=== PATIENT | male | born 1970 | race Caucasian/White ===

== ENCOUNTER 2017-07-19 19:36 | Emergency (ER) | payer OTHER | END 2017-07-20 00:41 | disposition left against medical advice (07) | LOC: M ED 19:36 | DX: Z53.21 Procedure and treatment not carried out due to patient leaving prior to being seen by health care provider (principal) ==

== ENCOUNTER → 2017-07-20 | Outpatient (CLI) | payer OTHER | LOC: M RAD 14:28 | DX: R50.9 Fever, unspecified (principal); R06.02 Shortness of breath | CPT/HCPCS: 71046 ==

== ENCOUNTER 2018-03-27 17:07 | Emergency (ER) | payer OTHER ==
[2018-03-27 18:27] LABS: BASO # 0.1 10^3/uL (0.0-0.2); BASO % 1.1 % (0.0-1.0); EOS # 0.3 10^3/uL (0.0-0.50); EOS % 3.4 % (0.0-3.0); HEMATOCRIT 48.8 % (42.0-52.0); HEMOGLOBIN 16.6 g/dl (13.5-17.5); IMMATURE GRANULOCYTE % 0.4 % (0-3.0); LYMPH # 3.3 10^3/uL (1.5-4.5); LYMPH % 41.9 % (24.0-44.0); MEAN CORPUSCULAR HEMOGLOBIN 30.3 pg (27.0-33.0); MEAN CORPUSCULAR VOLUME 89.1 fl (80.0-96.0); MONO # 0.7 10^3/uL (0.0-0.8); MONO % 8.2 % (0.0-5.0); NEUTROPHILS # 3.6 10^3/uL (1.8-7.7); PLATELET COUNT, AUTOMATED 213 10^3/uL (150-450); RED BLOOD COUNT 5.48 10^6/uL (4.30-6.10); RED CELL DISTRIBUTION WIDTH 12.1 % (11.5-14.5); WHITE BLOOD COUNT 7.9 10^3/uL (4.0-10.0)
[2018-03-27 18:49] LABS: ANION GAP 7 MEQ/L (8-16); BLOOD UREA NITROGEN 13 MG/DL (7-18); CALCIUM LEVEL 8.8 MG/DL (8.5-10.1); CARBON DIOXIDE LEVEL 27 MEQ/L (21-32); CHLORIDE LEVEL 107 MEQ/L (98-107); CREATININE FOR GFR 1.11 MG/DL (0.70-1.30); GLOMERULAR FILTRATION RATE > 60.0 (>60); GLUCOSE, FASTING 83 MG/DL (70-100); POTASSIUM SERUM 4.1 MEQ/L (3.5-5.1); SODIUM LEVEL 141 MEQ/L (136-145)
[2018-03-27] MEDS ORDERED: ISOVUE-370 76% 100ML VIAL (Q9967) As Ordered (18:52)
== END 2018-03-27 20:35 | disposition home or self-care (01) ==
LOC: M ED 17:07
DX: R68.84 Jaw pain (principal); R59.9 Enlarged lymph nodes, unspecified; F17.210 Nicotine dependence, cigarettes, uncomplicated
CPT/HCPCS: Q9967

== ENCOUNTER 2019-03-03 15:34 | Inpatient (IN) | payer OTHER ==
[~2019-03-03] VITALS: Ht 167.6 cm; Wt 84.0 kg
[~2019-03-03 15:34] MED LIST: IBUP-1022 PO
[2019-03-03] MEDS ORDERED: methylPREDNISolone INJ 125 MG/2 ML VIAL (J2930) IV ONE (16:30)
[2019-03-03 16:40] LABS: BASO # 0.1 10^3/uL (0.0-0.2); BASO % 0.6 % (0.0-1.0); EOS # 0.2 10^3/uL (0.0-0.50); EOS % 1.6 % (0.0-3.0); HEMATOCRIT 50.6 % (42.0-52.0); HEMOGLOBIN 17.2 g/dl (13.5-17.5); LYMPH # 1.8 10^3/uL (1.5-4.5); LYMPH % 14.7 % (24.0-44.0); MEAN CORPUSCULAR HEMOGLOBIN 30.7 pg (27.0-33.0); MEAN CORPUSCULAR VOLUME 90.4 fl (80.0-96.0); MONO # 0.8 10^3/uL (0.0-0.8); MONO % 6.5 % (0.0-5.0); NEUTROPHILS # 9.5 10^3/uL (1.8-7.7); NEUTROPHILS % 76.1 % (36.0-66.0); PLATELET COUNT, AUTOMATED 205 10^3/uL (150-450); WHITE BLOOD COUNT 12.4 10^3/uL (4.0-10.0)
[2019-03-03] MEDS: IPRATROPIUM 0.5MG/ALBUTEROL 2.5MG INH SOL UD 3ML (DUONEB)(J7620) NEB PRN ×3 (16:46→17:20)
[2019-03-03 17:01] LABS: ABG BASE EXCESS -1.9 (-2.0-2.0); ABG HCO3 20.8 MEQ/L (22.0-26.0); ABG PARTIAL PRESSURE CO2 30.8 mmHg (35.0-45.0); ABG PARTIAL PRESSURE O2 54.6 mmHg (75.0-100.0); ABG STANDARD HCO3 22.7 MEQ/L (22.0-26.0); ABG TOTAL CO2 21.7 MEQ/L (22.0-29.0); ABG pH (ARTERIAL) 7.447 UNITS (7.350-7.450)
[2019-03-03 17:13] LABS: ALBUMIN 4.5 GM/DL (3.2-5.2); ALT/SGPT 33 U/L (12-78); BILIRUBIN,DIRECT < 0.1 MG/DL (0.0-0.2); BILIRUBIN,TOTAL 0.4 MG/DL (0.2-1.0); BLOOD UREA NITROGEN 11 MG/DL (7-18); CALCIUM LEVEL 9.4 MG/DL (8.5-10.1); CARBON DIOXIDE LEVEL 29 MEQ/L (21-32); CHLORIDE LEVEL 105 MEQ/L (98-107); CK-MB VALUE MASS 1.6 NG/ML (<3.6); CPK CREATINE PHOSPHOKINASE 126 U/L (39-308); CREATININE FOR GFR 1.12 MG/DL (0.70-1.30); GLOMERULAR FILTRATION RATE > 60.0 (>60); GLUCOSE, FASTING 86 MG/DL (70-100); MB/CK RELATIVE INDEX 1.27 (< OR =4); NT-PRO BNP 40 PG/ML (<125); POTASSIUM SERUM 4.2 MEQ/L (3.5-5.1); SODIUM LEVEL 140 MEQ/L (136-145); TOTAL PROTEIN 7.5 GM/DL (6.4-8.2); TROPONIN I < 0.02 NG/ML (< 0.10)
[2019-03-03] MEDS ORDERED: ISOVUE-370 76% 100ML VIAL (Q9967) As Ordered ONE (18:07)
--- NOTE | 2019-03-03 18:39 | REP ---
PA and lateral chest: Comparison is 07/20/2017. The lung nesbitt are clear. The cardiac size is normal. The deshawn, mediastinum, and skeletal structures are unremarkable. Impression: Negative PA and lateral chest. There is no interval change. Electronically Signed by Eleazar Alfaro MD 03/03/2019 06:30 P
--- NOTE | 2019-03-03 18:39 | REPVR ---
EXAM: CT Angiography Chest With Contrast EXAM DATE/TIME: 03/03/2019 6:02 PM CLINICAL HISTORY: 49 years old, male; Shortness of breath; Additional info: SOB, hypoxia TECHNIQUE: Imaging protocol: Computed tomographic angiography of the chest with intravenous contrast. 3D rendering: MIP reconstructed images were created and reviewed. Radiation optimization: All CT scans at this facility use at least one of these dose optimization techniques: automated exposure control; mA and/or kV adjustment per patient size (includes targeted exams where dose is matched to clinical indication); or iterative reconstruction. Contrast material: ISOVUE 370; Contrast volume: 75 ml; Contrast route: IV; COMPARISON: CR Chest, 2 view PA, Lat 03/03/2019 4:56 PM FINDINGS: Pulmonary arteries: Normal. No pulmonary emboli. Aorta: Unremarkable. No aortic aneurysm. No aortic dissection. Lungs: Unremarkable. No consolidation. No masses. Pleural space: Unremarkable. No pneumothorax. No pleural effusion. Heart: Unremarkable. No cardiomegaly. No pericardial effusion. Lymph nodes: Unremarkable. No enlarged lymph nodes. Bones/joints: Unremarkable. No acute fracture. Soft tissues: Unremarkable. IMPRESSION: No acute findings. Electronically signed by: Basilia Hammer On 03/03/2019 18:39:01 PM
[2019-03-03] MEDS ORDERED: ALBUTEROL SULFATE 2.5 MG/0.5 ML INH NEB SOLN NEB ONE (18:45)
[2019-03-03] MEDS ORDERED: NS 500 ML IV ONE (20:45)
[2019-03-03 20:53] LABS: PROTHROMBIN TIME 12.9 SECONDS (11.8-14.0)
--- NOTE | 2019-03-03 21:30 | ECGEPIP ---
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
[2019-03-03] MEDS: AZITHROMYCIN INJ 500 MG, VIAL MATE ADAPTER 1 EACH in D5W 250 ML IV SCH (21:35)
--- NOTE | 2019-03-03 21:43 | HPEPDOC ---
General Date of Admission Mar 03, 2019 at 20:22 Date of Service: Mar 03, 2019 Chief Complaint The patient is a 49-year-old male admitted with a reason for visit of Acute Bronchitis;Hypoxia. Source: Patient, RN/MD Exam Limitations: No limitations Severity: Moderate History of Present Illness 49 year old smoker came to the ED for Cough, SOB and wheezing for 2 days. He does not see any doctor and is not on any medications. e also complained of subjective fever. Says he has chronic cough but it has become worse for the past 2 days with increased phlegm production associated with wheezing. He also has been having trouble laying down felt in bed since yesterday and increased wheezing at night. In ED he was found to be hypoxic in room air to 87%. is CXR and CT angio o the Chest was negative. He was admitted for Acute bronchitis, , post infectious bronchospasm and hypoxia Home Medications No Active Prescriptions or Reported Meds Allergies Coded Allergies: No Known Allergies (Unverified , 07/19/17) Past Medical History Medical History none Surgical History Exploratory laparotomy as an hernia surgery appendectomy Family History Significant Family History: Cancer (father brain cancer), COPD (mother, brother) Social History * Smoker: current smoker, greater than 1 pack/day Alcohol: Denies Drugs: denies A-FIB/CHADSVASC A-FIB History Current/History of A-Fib/PAF?: No Review of Systems Constitutional: Denies: Fever Eyes: Denies: Pain, Vision change ENT: Denies: Head Aches, Ear Pain, Dysphagia Skin: Denies: Rash, Lesions, Breakdown Pulmonary: Denies: Dyspnea, Cough Cardiovascular: Denies: Chest Pain, Palpitations, Orthopnea, Paroxysmal Noc. Dyspnea, Lt Headedness Gastrointestinal: Denies: Nausea, Vomiting, Abdominal Pain, Diarrhea Genitourinary: Denies: Dysuria, Frequency, Incontinence, Retention Hematologic: Denies: Bruising, Bleeding Excessively Musculoskeletal: Denies: Neck Pain, Back Pain, Joint Pain, Muscle Pain, Spasms Physical Examination General Exam: Positive: Alert, Cooperative, No Acute Distress Eye Exam: Positive: PERRLA, Conjunctiva & lids normal, EOMI; Negative: Sclera icteric ENT Exam: Positive: Atraumatic, Mucous membr. moist/pink, Pharynx Normal Neck Exam: Positive: Supple; Negative: JVD, thyromegaly Chest Exam: Positive: Rhonchi, Wheezing Heart Exam: Positive: Tachycardic, Regular Rhythm, Normal S1, Normal S2; Negative: Gallops, Murmurs, Rubs Telemetry: Positive: Sinus, Tachycardia Abdomen Exam: Positive: Normal bowel sounds, Soft; Negative: Tenderness, Hepatospenomegaly Extremity Exam: Positive: Normal pulses; Negative: Clubbing, Cyanosis, Edema Skin Exam: Positive: Nl turgor and temperature; Negative: Breakdown, Lesion Vital Signs Vital Signs Date Time Temp Pulse Resp B/P (MAP) Pulse Ox O2 Delivery O2 Flow Rate FiO2 03/03/19 20:31 116 92 Nasal Cannula 2.0 03/03/19 19:14 98.6 03/03/19 18:46 130/70 (90) 03/03/19 15:34 22 Laboratory Data Labs 24H Laboratory Tests 2 03/03/19 16:07: Immature Granulocyte % (Auto) 0.5, White Blood Count 12.4H, Red Blood Count 5.60, Hemoglobin 17.2, Hematocrit 50.6, Mean Corpuscular Volume 90.4, Mean Corpuscular Hemoglobin 30.7, Mean Corpuscular Hemoglobin Concent 34.0, Red Cell Distribution Width 12.4, Platelet Count 205, Neutrophils (%) (Auto) 76.1H, Lymphocytes (%) (Auto) 14.7L, Monocytes (%) (Auto) 6.5H, Eosinophils (%) (Auto) 1.6, Basophils (%) (Auto) 0.6, Neutrophils # (Auto) 9.5H, Lymphocytes # (Auto) 1.8, Monocytes # (Auto) 0.8, Eosinophils # (Auto) 0.2, Basophils # (Auto) 0.1, Nucleated Red Blood Cells % (auto) 0.0, Anion Gap 6L, Glomerular Filtration Rate > 60.0, Calcium Level 9.4, Aspartate Amino Transf (AST/SGOT) 14, Alanine Aminotransferase (ALT/SGPT) 33, Alkaline Phosphatase 125H, Total Bilirubin 0.4, Direct Bilirubin < 0.1, Total Creatine Kinase 126, Creatine Kinase MB 1.6, Creatine Kinase MB Relative Index 1.27, Troponin I < 0.02, OP-Ohr-U-Type Natriuretic Peptide 40, Total Protein 7.5, Albumin 4.5, Albumin/Globulin Ratio 1.50, Thyroid Stimulating Hormone (TSH) 1.650 03/03/19 16:46: Blood Gas Bicarbonate Standard 22.7, Arterial Blood pH 7.447, Arterial Blood Partial Pressure CO2 30.8L, Arterial Blood Partial Pressure O2 54.6L, Arterial Blood Total CO2 21.7L, Arterial Blood HCO3 20.8L, Arterial Blood Base Excess - 1.9, Arterial Blood Oxygen Saturation 91.0L 03/03/19 20:16: Prothrombin Time 12.9, Prothromb Time International Ratio 1.00 CBC/BMP Laboratory Tests 03/03/19 16:07 Red Blood Count 5.60, Mean Corpuscular Volume 90.4, Mean Corpuscular Hemoglobin 30.7, Mean Corpuscular Hemoglobin Concent 34.0, Red Cell Distribution Width 12.4, Neutrophils (%) (Auto) 76.1 H, Lymphocytes (%) (Auto) 14.7 L, Monocytes (%) (Auto) 6.5 H, Eosinophils (%) (Auto) 1.6, Basophils (%) (Auto) 0.6, Neutrophils # (Auto) 9.5 H, Lymphocytes # (Auto) 1.8, Monocytes # (Auto) 0.8, Eosinophils # (Auto) 0.2, Basophils # (Auto) 0.1 Microbiology Microbiology 03/03/19 Respiratory Virus Panel (PCR) ([facility]YA), Received Pending Assessment/Plan 49 year old smoker came to the ED for Cough, SOB and wheezing for 2 days. He does not see any doctor and is not on any medications. e also complained of subjective fever. Says he has chronic cough but it has become worse for the past 2 days with increased phlegm production associated with wheezing. He also has been having trouble laying down felt in bed since yesterday and increased wheezing at night. In ED he was found to be hypoxic in room air to 87%. is CXR and CT angio o the Chest was negative. He was admitted for Acute bronchitis, , post infectious bronchospasm and hypoxia Acute bronchitis with post infectious bronchospasm will send resp panel, sputum culture azithromycin, duonebs, budesonide, steroids. Hypoxia due to post infectious bronchospasm continue above treatment oxygen supplementation as needed. Smoker discussed about quitting says he is trying to quit probably has chronic bronchitis Sinus tachycardia possibly due to albuterol treatments and reactive to SOB may be mildly dehydrated will check echo. will give NS 500 iv bolus. Plan / VTE VTE Prophylaxis Ordered?: Yes AKOSUA SCHWARZ MD Mar 03, 2019 21:43
[2019-03-03 22:38] VITALS: BP 137/69
[2019-03-03] MEDS: methylPREDNISolone INJ 40 MG/1 ML VIAL (J2920) IV SCH (23:05)
[2019-03-03] MEDS: ENOXAPARIN 40 MG/0.4 ML SYRINGE (J1650) SC SCH (23:05)
[2019-03-04] MEDS: BUDESONIDE 0.5 MG/2 ML INHALATION SUSPENSION INH SCH ×3 (00:02→20:15)
[2019-03-04] MEDS: IPRATROPIUM 0.5MG/ALBUTEROL 2.5MG INH SOL UD 3ML (DUONEB)(J7620) NEB SCH ×6 (00:02→22:41)
[2019-03-04 06:00] VITALS: BP 119/59
[2019-03-04 06:12] LABS: BASO % 0.1 % (0.0-1.0); HEMATOCRIT 47.2 % (42.0-52.0); HEMOGLOBIN 16.3 g/dl (13.5-17.5); LYMPH # 1.1 10^3/uL (1.5-4.5); LYMPH % 7.7 % (24.0-44.0); MEAN CORPUSCULAR HEMOGLOBIN 30.9 pg (27.0-33.0); MEAN CORPUSCULAR HGB CONC 34.5 g/dl (32.0-36.5); MEAN CORPUSCULAR VOLUME 89.6 fl (80.0-96.0); MONO # 0.3 10^3/uL (0.0-0.8); NEUTROPHILS # 12.3 10^3/uL (1.8-7.7); NEUTROPHILS % 89.5 % (36.0-66.0); PLATELET COUNT, AUTOMATED 200 10^3/uL (150-450); RED BLOOD COUNT 5.27 10^6/uL (4.30-6.10); WHITE BLOOD COUNT 13.7 10^3/uL (4.0-10.0)
[2019-03-04 06:41] LABS: BLOOD UREA NITROGEN 15 MG/DL (7-18); CALCIUM LEVEL 8.9 MG/DL (8.5-10.1); CARBON DIOXIDE LEVEL 21 MEQ/L (21-32); CHLORIDE LEVEL 108 MEQ/L (98-107); CREATININE FOR GFR 1.31 MG/DL (0.70-1.30); GLOMERULAR FILTRATION RATE > 60.0 (>60); GLUCOSE, FASTING 163 MG/DL (70-100); POTASSIUM SERUM 3.8 MEQ/L (3.5-5.1); SODIUM LEVEL 140 MEQ/L (136-145)
[2019-03-04] MEDS: methylPREDNISolone INJ 40 MG/1 ML VIAL (J2920) IV SCH ×2 (11:07→23:19)
--- NOTE | 2019-03-04 12:41 | IPNPDOC ---
Text Note Date of Service The patient was seen on 03/04/19. NOTE Subjective: Patient continues to have shortness of breath, cough and whitish sputum production. He stated that shortness of breath improved since admission. His oxygen saturation on 2 L of oxygen around 90-92% Objective: General: NAD HEENT: PERRLA, EOMI, no JVD Lungs: Prolonged expiratory wheezes Abdomen: Nontender, nondistended CV: S1-S2 Extremities: No cyanosis, no swelling Neuro:Nonfocal,cranial nerves from II through XII intact Assessment and plan: Patient is 59 years old male with past medical history of COPD with active smoker presented hospital with increased cough and sputum production. Patient was found to have hypoxia with oxygen saturation of 87%. Imaging study was negative for pulmonary infiltrate. Acute hypoxic respiratory failure Secondary to COPD exacerbation Sputum culture Incentive spirometry Continue treatment with azithromycin IV IV steroids for now DuoNeb eekfea-ich-wfcab inhaler steroids Acute bronchitis with post infectious bronchospasm See treatment above Patient was counseled to stop smoking Tobacco abuse Patient rejected nicotine patch Sinus tachycardia Secondary to respiratory distress Resolved VS,Jennifere, I+O VS, Arbone, I+O Laboratory Tests 03/03/19 16:07 Red Blood Count 5.60, Mean Corpuscular Volume 90.4, Mean Corpuscular Hemoglobin 30.7, Mean Corpuscular Hemoglobin Concent 34.0, Red Cell Distribution Width 12.4, Neutrophils (%) (Auto) 76.1 H, Lymphocytes (%) (Auto) 14.7 L, Monocytes (%) (Auto) 6.5 H, Eosinophils (%) (Auto) 1.6, Basophils (%) (Auto) 0.6, Neutrophils # (Auto) 9.5 H, Lymphocytes # (Auto) 1.8, Monocytes # (Auto) 0.8, Eosinophils # (Auto) 0.2, Basophils # (Auto) 0.1 03/04/19 05:51 Red Blood Count 5.27, Mean Corpuscular Volume 89.6, Mean Corpuscular Hemoglobin 30.9, Mean Corpuscular Hemoglobin Concent 34.5, Red Cell Distribution Width 12.6, Neutrophils (%) (Auto) 89.5 H, Lymphocytes (%) (Auto) 7.7 L, Monocytes (%) (Auto) 2.0, Eosinophils (%) (Auto) 0.0, Basophils (%) (Auto) 0.1, Neutrophils # (Auto) 12.3 H, Lymphocytes # (Auto) 1.1 L, Monocytes # (Auto) 0.3, Eosinophils # (Auto) 0.0, Basophils # (Auto) 0.0, Calcium Level 8.9 Vital Signs Date Time Temp Pulse Resp B/P (MAP) Pulse Ox O2 Delivery O2 Flow Rate FiO2 03/04/19 08:33 2.0 03/04/19 06:00 98.2 105 32 119/59 (79) 90 03/03/19 22:00 Nasal Cannula I&O- Last 24 Hours up to 6 AM 03/04/19 06:00 Intake Total 600 ml Output Total 300 ml Balance 300 ml JAYDA CALLEJAS DO Mar 04, 2019 12:41
[2019-03-04 14:00] VITALS: BP 139/90
[2019-03-04] MEDS: CALCIUM CARBONATE 500 MG CHEW U/D PO PRN (19:52)
[2019-03-04] MEDS: AZITHROMYCIN INJ 500 MG, VIAL MATE ADAPTER 1 EACH in D5W 250 ML IV SCH (21:48)
[2019-03-04] MEDS: ENOXAPARIN 40 MG/0.4 ML SYRINGE (J1650) SC SCH (21:48)
[2019-03-04 22:00] VITALS: BP 130/68
[2019-03-05] MEDS: IPRATROPIUM 0.5MG/ALBUTEROL 2.5MG INH SOL UD 3ML (DUONEB)(J7620) NEB SCH ×4 (03:09→16:04)
[2019-03-05] MEDS ORDERED: CALCIUM CARBONATE 500 MG CHEW U/D PO ONE (03:45)
[2019-03-05 06:00] VITALS: BP 116/66
[2019-03-05 06:22] LABS: BASO % 0.1 % (0.0-1.0); HEMATOCRIT 48.5 % (42.0-52.0); HEMOGLOBIN 16.6 g/dl (13.5-17.5); LYMPH # 1.5 10^3/uL (1.5-4.5); MEAN CORPUSCULAR HEMOGLOBIN 30.5 pg (27.0-33.0); MEAN CORPUSCULAR HGB CONC 34.2 g/dl (32.0-36.5); MEAN CORPUSCULAR VOLUME 89.2 fl (80.0-96.0); MONO # 0.9 10^3/uL (0.0-0.8); MONO % 4.3 % (0.0-5.0); NEUTROPHILS # 18.8 10^3/uL (1.8-7.7); NEUTROPHILS % 87.9 % (36.0-66.0); PLATELET COUNT, AUTOMATED 237 10^3/uL (150-450); RED BLOOD COUNT 5.44 10^6/uL (4.30-6.10); WHITE BLOOD COUNT 21.4 10^3/uL (4.0-10.0)
[2019-03-05 06:40] LABS: BLOOD UREA NITROGEN 19 MG/DL (7-18); CALCIUM LEVEL 9.3 MG/DL (8.5-10.1); CARBON DIOXIDE LEVEL 23 MEQ/L (21-32); CHLORIDE LEVEL 108 MEQ/L (98-107); CREATININE FOR GFR 1.16 MG/DL (0.70-1.30); GLOMERULAR FILTRATION RATE > 60.0 (>60); GLUCOSE, FASTING 152 MG/DL (70-100); SODIUM LEVEL 141 MEQ/L (136-145)
[2019-03-05] MEDS: BUDESONIDE 0.5 MG/2 ML INHALATION SUSPENSION INH SCH ×2 (08:12→19:28)
--- NOTE | 2019-03-05 09:09 | IPNPDOC ---
Text Note Date of Service The patient was seen on 03/05/19. NOTE Subjective: Patient stated that his breathing markedly improved today. He co ntinues to have sinus tachycardia around 110s. His oxygen saturation on room air around 95% Objective: General: NAD HEENT: PERRLA, EOMI, no JVD Lungs: Mild expiratory wheezes Abdomen: Nontender, nondistended CV: S1-S2 Extremities: No cyanosis, no swelling Neuro:Nonfocal,cranial nerves from II through XII intact Assessment and plan: Patient is 59 years old male with past medical history of COPD with active smoker presented hospital with increased cough and sputum production. Patient was found to have hypoxia with oxygen saturation of 87%. Imaging study was negative for pulmonary infiltrate. Treatment with inhalers, IV steroids and azithromycin IV initiated. Nasopharyngeal swab came back positive for rhinovirus/enterovirus infection. On 03/05/19 IV steroids were changed to by mouth Acute hypoxic respiratory failure Secondary to COPD exacerbation 2/2 viral infection Sputum culture Incentive spirometry Continue treatment with azithromycin PO IV steroids changed for by mouth prednisone 40 mg DuoNeb dbkajb-mhl-ykfor inhaler steroids Acute bronchitis with post infectious bronchospasm See treatment above Patient was counseled to stop smoking Tobacco abuse Patient rejected nicotine patch Sinus tachycardia Secondary to respiratory distress and treatment with beta agonist Telemetry Echo pending EKG VS,Angela, I+O VS, Angela, I+O Laboratory Tests 03/05/19 05:54 Red Blood Count 5.44, Mean Corpuscular Volume 89.2, Mean Corpuscular Hemoglobin 30.5, Mean Corpuscular Hemoglobin Concent 34.2, Red Cell Distribution Width 13.1, Neutrophils (%) (Auto) 87.9 H, Lymphocytes (%) (Auto) 7.0 L, Monocytes (%) (Auto) 4.3, Eosinophils (%) (Auto) 0.0, Basophils (%) (Auto) 0.1, Neutrophils # (Auto) 18.8 H, Lymphocytes # (Auto) 1.5, Monocytes # (Auto) 0.9 H, Eosinophils # (Auto) 0.0, Basophils # (Auto) 0.0, Calcium Level 9.3 Vital Signs Date Time Temp Pulse Resp B/P (MAP) Pulse Ox O2 Delivery O2 Flow Rate FiO2 03/05/19 06:00 97.5 112 22 116/66 (83) 90 1.0 03/03/19 22:00 Nasal Cannula I&O- Last 24 Hours up to 6 AM 03/05/19 06:00 Intake Total 1472 ml Output Total 120 ml Balance 1352 ml JAYDA CALLEJAS DO Mar 05, 2019 09:09
[2019-03-05] MEDS: predniSONE 20 MG TAB PO SCH (09:52)
--- NOTE | 2019-03-05 11:02 | ECHO ---
DATE OF PROCEDURE: 03/04/2019 REFERRING PHYSICIAN: Dr. Jory Valencia INDICATION: Dyspnea. HEIGHT: 166 cm WEIGHT: 83 kg. 2D MEASUREMENTS: Left atrium - 3.6 cm Ventricular septum - 0.88 cm Posterior wall - 0.72 cm Left ventricle diastole - 4.5 cm Aortic root - 3.3 cm Aortic annulus - 2.0 cm Inferior vena cava - 1.3 cm DOPPLER MEASUREMENTS: Aortic valve velocity - 181 cm/s LVOT velocity - 179 cm/s LVOT VTI - 27.4 cm Mitral E velocity - 108 cm/s Mitral A velocity - 91. 3 cm/s Mitral deceleration time - 155 ms. No tricuspid regurgitation. Pulmonary artery systolic pressure - 43 mmHg. MITRAL ANNULAR TISSUE DOPPLER; E prime septal - 10.7 cm/s E prime lateral - 12.9 cm/s DESCRIPTION: The rhythm was sinus rhythm to sinus tachycardia. The imaged quality was fair. No pericardial effusion. This was a 2D, M-mode color flow Doppler and pulse wave Doppler examination including mitral annular tissue Doppler. CONCLUSIONS: 1. Normal left ventricle internal dimensions and wall thickness. Normal regional LV wall motion and wall thickening. Normal LV systolic function. LVEF of 70% by visual estimate. Normal LV diastolic function. 2. Suggestive of moderate elevation of pulmonary artery systolic pressure. Normal right ventricle size and systolic function. 3. Suggestive central venous pressure in the range of 0-5 mmHg at the time of this study. 4. Otherwise, normal appearing echocardiogram Doppler findings.
--- NOTE | 2019-03-05 12:12 | ECGEPIP ---
[facility] Test Date: 2019-03-05 Pat Name: REUBEN SWAN Department: Room: [place] [address] Gender: Male [employer] Electrical Person: CELINA : 1970 Requested By: JAYDA CALLEJAS Order Number: [id number] Reading MD: Jordana Martinez Measurements Intervals [place] Rate: 90 P: 78 VT: 111 QRS: 25 QRSD: 94 T: 35 QT: 344 QTc: 423 Interpretive Statements SINUS RHYTHM WITH SHORT VT INTERVAL NONSPECIFIC T-WAVE ABNORMALITY Electronically Signed on 03-05-2019 12:12:03 EDT by Jordana Martinez
[2019-03-05 14:00] VITALS: BP 120/69
[2019-03-05] MEDS ORDERED: IPRATROPIUM 0.5MG/ALBUTEROL 2.5MG INH SOL UD 3ML (DUONEB)(J7620) NEB PRN (17:30)
[2019-03-05] MEDS: OMEPRAZOLE 20 MG CAP PO SCH (18:36)
[2019-03-05] MEDS ORDERED: AZITHROMYCIN 250 MG TAB PO SCH (21:00)
[2019-03-05] MEDS: CALCIUM CARBONATE 500 MG CHEW U/D PO PRN (21:22)
[2019-03-05] MEDS: ENOXAPARIN 40 MG/0.4 ML SYRINGE (J1650) SC SCH (21:22)
[2019-03-05 22:00] VITALS: BP_SYST 128; BP_SYST 138; BP_DIAS 71; BP_DIAS 79
[2019-03-06 06:00] VITALS: BP 104/69
[2019-03-06 06:13] LABS: BASO % 0.2 % (0.0-1.0); EOS % 0.1 % (0.0-3.0); HEMATOCRIT 45.1 % (42.0-52.0); HEMOGLOBIN 15.4 g/dl (13.5-17.5); LYMPH # 4.4 10^3/uL (1.5-4.5); LYMPH % 24.3 % (24.0-44.0); MEAN CORPUSCULAR HEMOGLOBIN 30.2 pg (27.0-33.0); MEAN CORPUSCULAR HGB CONC 34.1 g/dl (32.0-36.5); MEAN CORPUSCULAR VOLUME 88.4 fl (80.0-96.0); MONO # 1.3 10^3/uL (0.0-0.8); MONO % 6.9 % (0.0-5.0); NEUTROPHILS # 12.2 10^3/uL (1.8-7.7); NEUTROPHILS % 67.7 % (36.0-66.0); PLATELET COUNT, AUTOMATED 233 10^3/uL (150-450)
[2019-03-06 06:35] LABS: BLOOD UREA NITROGEN 23 MG/DL (7-18); CALCIUM LEVEL 8.7 MG/DL (8.5-10.1); CARBON DIOXIDE LEVEL 25 MEQ/L (21-32); CHLORIDE LEVEL 109 MEQ/L (98-107); CREATININE FOR GFR 1.15 MG/DL (0.70-1.30); GLOMERULAR FILTRATION RATE > 60.0 (>60); GLUCOSE, FASTING 100 MG/DL (70-100); POTASSIUM SERUM 4.2 MEQ/L (3.5-5.1); SODIUM LEVEL 141 MEQ/L (136-145)
[2019-03-06] MEDS: BUDESONIDE 0.5 MG/2 ML INHALATION SUSPENSION INH SCH (07:46)
[2019-03-06] MEDS: predniSONE 20 MG TAB PO SCH (08:58)
[2019-03-06] MEDS: OMEPRAZOLE 20 MG CAP PO SCH (08:58)
[2019-03-06] MEDS ORDERED: ACETAMINOPHEN TAB 650MG DOSE (2X325MG) PO PRN (09:15)
[2019-03-06] MEDS ORDERED: ACET1TAB55 PO (11:07)
[2019-03-06] MEDS ORDERED: PRED20TA PO (11:07)
[2019-03-06] MEDS ORDERED: COMBAER6 INH (11:07)
[2019-03-06] MEDS ORDERED: AZIT500T2 PO (11:07)
[2019-03-06] MEDS ORDERED: BUDE0.254 NEB (11:07)
[2019-03-06] MEDS ORDERED: CLEV1MIS25 XX (11:07)
[2019-03-06] MEDS ORDERED: QVAR80AE8 INH ×2 (11:49→12:48)
[2019-03-06] MEDS ORDERED: ARNU1INH PO (11:49)
[2019-03-06] MEDS ORDERED: VENTAER INH (12:39)
[2019-03-06] MEDS ORDERED: INCR1INH INH (12:50)
--- NOTE | 2019-03-06 19:51 | DS.PDOC ---
Discharge Summary General Date of Admission Mar 03, 2019 at 20:22 Date of Discharge 03/06/19 Attending Physician: JAYDA CALLEJAS DO Discharge Summary PROCEDURES PERFORMED DURING STAY: None ADMITTING DIAGNOSES: Acute hypoxic respiratory failure Acute bronchitis with post infectious bronchospasm Tobacco abuse Sinus tachycardia DISCHARGE DIAGNOSES: Acute hypoxic respiratory failure Acute bronchitis with post infectious bronchospasm Tobacco abuse Sinus tachycardia COMPLICATIONS/CHIEF COMPLAINT: Acute Bronchitis;Hypoxia. HISTORY OF PRESENT ILLNESS: 49 year old smoker came to the ED for Cough, SOB and wheezing for 2 days. He does not see any doctor and is not on any medications. e also complained of subjective fever. Says he has chronic cough but it has become worse for the past 2 days with increased phlegm production associated with wheezing. He also has been having trouble laying down felt in bed since yesterday and increased wheezing at night. In ED he was found to be hypoxic in room air to 87%. is CXR and CT angio o the Chest was negative. He was admitted for acute bronchitis, post infectious bronchospasm and hypoxia HOSPITAL COURSE: Patient received treatment with inhalers, IV steroids and azithromycin IV initiated. Nasopharyngeal swab came back positive for r hinovirus/enterovirus infection. On 03/05/19 IV steroids were changed to by mouth. Patient received extensive counseling about smoking. Patient's tachycardia was associated with albuterol, DuoNeb treatment. EKG was negative for atrial fibrillation or heart block. DISCHARGE MEDICATIONS: Please see below. ALLERGIES: Please see below. PHYSICAL EXAMINATION ON DISCHARGE: VITAL SIGNS: Please see below. General: NAD HEENT: PERRLA, EOMI, no JVD Lungs: Mild expiratory wheezes Abdomen: Nontender, nondistended CV: S1-S2 Extremities: No cyanosis, no swelling Neuro:Nonfocal,cranial nerves from II through XII intact LABORATORY DATA: Please see below. IMAGING:EXAM: CT Angiography Chest With Contrast EXAM DATE/TIME: 03/03/2019 6:02 PM CLINICAL HISTORY: 49 years old, male; Shortness of breath; Additional info: SOB, hypoxia TECHNIQUE: Imaging protocol: Computed tomographic angiography of the chest with intravenous contrast. 3D rendering: MIP reconstructed images were created and reviewed. Radiation optimization: All CT scans at this facility use at least one of these dose optimization techniques: automated exposure control; mA and/or kV adjustment per patient size (includes targeted exams where dose is matched to clinical indication); or iterative reconstruction. Contrast material: ISOVUE 370; Contrast volume: 75 ml; Contrast route: IV; COMPARISON: CR Chest, 2 view PA, Lat 03/03/2019 4:56 PM FINDINGS: Pulmonary arteries: Normal. No pulmonary emboli. Aorta: Unremarkable. No aortic aneurysm. No aortic dissection. Lungs: Unremarkable. No consolidation. No masses. Pleural space: Unremarkable. No pneumothorax. No pleural effusion. Heart: Unremarkable. No cardiomegaly. No pericardial effusion. Lymph nodes: Unremarkable. No enlarged lymph nodes. Bones/joints: Unremarkable. No acute fracture. Soft tissues: Unremarkable. IMPRESSION: No acute findings. Electronically signed by: Basilia Hammer On 03/03/2019 18:39:01 PM PROGNOSIS: Favorable ACTIVITY: As tolerated DIET: Regular DISCHARGE PLAN: Follow-up with PCP in 5-7 days DISPOSITION: 01 Home, Self-Care. DISCHARGE INSTRUCTIONS: 1. Stop smoking ITEMS TO FOLLOWUP ON ON OUTPATIENT: 1. Continue inhalers, steroids and antibiotic DISCHARGE CONDITION: Stable TIME SPENT ON DISCHARGE: Greater than 20 minutes. Vital Signs/I&Os Vital Signs Date Time Temp Pulse Resp B/P (MAP) Pulse Ox O2 Delivery O2 Flow Rate FiO2 03/06/19 06:00 97.6 86 22 104/69 (81) 93 1.0 03/03/19 22:00 Nasal Cannula I&O- Last 24 Hours up to 6 AM0 03/06/19 06:00 Intake Total 2202 ml Output Total 0 ml Balance 2202 ml Laboratory Data Labs 24H Laboratory Tests 2 03/06/19 05:46: Immature Granulocyte % (Auto) 0.8, White Blood Count 18.0H, Red Blood Count 5.10, Hemoglobin 15.4, Hematocrit 45.1, Mean Corpuscular Volume 88.4, Mean Corpuscular Hemoglobin 30.2, Mean Corpuscular Hemoglobin Concent 34.1, Red Cell Distribution Width 13.2, Platelet Count 233, Neutrophils (%) (Auto) 67.7H, Lymphocytes (%) (Auto) 24.3, Monocytes (%) (Auto) 6.9H, Eosinophils (%) (Auto) 0.1, Basophils (%) (Auto) 0.2, Neutrophils # (Auto) 12.2H, Lymphocytes # (Auto) 4.4, Monocytes # (Auto) 1.3H, Eosinophils # (Auto) 0.0, Basophils # (Auto) 0.0, Nucleated Red Blood Cells % (auto) 0.0, Anion Gap 7L, Glomerular Filtration Rate > 60.0, Blood Urea Nitrogen 23H, Creatinine 1.15, Sodium Level 141, Potassium Level 4.2, Chloride Level 109H, Carbon Dioxide Level 25, Calcium Level 8.7 CBC/BMP Laboratory Tests 03/06/19 05:46 Red Blood Count 5.10, Mean Corpuscular Volume 88.4, Mean Corpuscular Hemoglobin 30.2, Mean Corpuscular Hemoglobin Concent 34.1, Red Cell Distribution Width 13.2, Neutrophils (%) (Auto) 67.7 H, Lymphocytes (%) (Auto) 24.3, Monocytes (%) (Auto) 6.9 H, Eosinophils (%) (Auto) 0.1, Basophils (%) (Auto) 0.2, Neutrophils # (Auto) 12.2 H, Lymphocytes # (Auto) 4.4, Monocytes # (Auto) 1.3 H, Eosinophils # (Auto) 0.0, Basophils # (Auto) 0.0, Calcium Level 8.7 Microbiology Microbiology 03/05/19 Gram Stain - Final, Resulted 03/05/19 Sputum Culture, Resulted Pending 03/03/19 Gram Stain - Final, Complete 03/03/19 Sputum Culture - Final, Complete 03/03/19 Respiratory Virus Panel (PCR) ([facility]) - Final, Complete Human Rhinovirus/Enterovirus Discharge Medications Scheduled Azithromycin (Azithromycin) 500 Mg Tablet, 1 TAB PO DAILY Budesonide (Budesonide) 0.25 Mg/2 Ml Ampul.neb, 1 VIAL NEB BID Fluticasone Furoate (Arnuity Ellipta) 100 Mcg Blst.w.dev, 1 PUFF PO DAILY Ipratropium/Albuterol Sulfate (Combivent Respimat 20-100 Mcg) 4 Gm Mist.inhal, 2 PUFF INH TID Prednisone (Prednisone) 20 Mg Tablet, 40 MG PO DAILY Scheduled PRN Acetaminophen (Acetaminophen) 325 Mg Tablet, 650 MG PO Q4HP PRN for PAIN OR FEVER Albuterol Sulfate (Ventolin Hfa) 18 Gm Hfa.aer.ad, 2 PUFF INH Q4-6HP PRN for w heezing Beclomethasone Dipropionate (Qvar Redihaler) 80 Mcg/Act Hfa.aeroba, 2 PUFF INH BID PRN for COPD Umeclidinium [place] (Incruse Ellipta) 62.5 Mcg Blst.w.dev, 2 PUFF INH DAILY PRN for COPD exacerbation Allergies Coded Allergies: No Known Allergies (Unverified , 07/19/17) JAYDA CALLEJAS DO Mar 06, 2019 19:51
== END 2019-03-06 11:45 | disposition home or self-care (01) | DRG 133 ==
LOC: M ED 15:34 → M ED INP 20:22 → M MSPAV 22:37
PROVIDERS: ADMIT Internal Medicine Nephrology; ATTEND Internal Medicine
DX: J96.01 Acute respiratory failure with hypoxia (principal); J20.9 Acute bronchitis, unspecified; E86.0 Dehydration; F17.200 Nicotine dependence, unspecified, uncomplicated; R00.0 Tachycardia, unspecified

== ENCOUNTER 2019-03-22 21:46 | Emergency (ER) | payer OTHER ==
[~2019-03-22] VITALS: Ht 167.6 cm; Wt 81.8 kg
[~2019-03-22 21:46] MED LIST changes: +ACET1TAB55 PO; +ARNU1INH PO; +AZIT500T5 PO; +BUDE0.254 NEB; +CLEV1MIS25 XX; +COMBAER6 INH; +INCR1INH INH; +PRED20TA PO; +QVAR80AE8 INH; +VENTAER INH
[2019-03-22 22:13] LABS: BASO # 0.1 10^3/uL (0.0-0.2); BASO % 0.9 % (0.0-1.0); EOS # 0.3 10^3/uL (0.0-0.5); EOS % 2.7 % (0.0-3.0); HEMATOCRIT 48.3 % (42.0-52.0); HEMOGLOBIN 16.2 g/dl (13.5-17.5); LYMPH # 2.8 10^3/uL (1.5-5.0); LYMPH % 28.3 % (24.0-44.0); MEAN CORPUSCULAR HEMOGLOBIN 30.5 pg (27.0-33.0); MEAN CORPUSCULAR HGB CONC 33.5 g/dl (32.0-36.5); MEAN CORPUSCULAR VOLUME 90.8 fl (80.0-96.0); MONO % 10.7 % (0.0-5.0); NEUTROPHILS # 5.4 10^3/uL (1.5-8.5); NEUTROPHILS % 55.6 % (36.0-66.0); PLATELET COUNT, AUTOMATED 189 10^3/uL (150-450); RED BLOOD COUNT 5.32 10^6/uL (4.30-6.10); WHITE BLOOD COUNT 9.7 10^3/uL (4.0-10.0)
[2019-03-22 22:26] LABS: INR 0.92; PROTHROMBIN TIME 12.1 SECONDS (11.8-14.0)
[2019-03-22 22:27] LABS: PARTIAL THROMBOPLASTIN TIME 25.8 SECONDS (25.0-38.4)
[2019-03-22 22:43] LABS: BLOOD UREA NITROGEN 18 MG/DL (7-18); CALCIUM LEVEL 9.1 MG/DL (8.5-10.1); CARBON DIOXIDE LEVEL 26 MEQ/L (21-32); CHLORIDE LEVEL 106 MEQ/L (98-107); CPK CREATINE PHOSPHOKINASE 101 U/L (39-308); CREATININE FOR GFR 1.24 MG/DL (0.70-1.30); FREE T4 0.76 NG/DL (0.76-1.46); GLOMERULAR FILTRATION RATE > 60.0 (>60); GLUCOSE, FASTING 85 MG/DL (70-100); MB/CK RELATIVE INDEX 0.99 (< OR =4); POTASSIUM SERUM 4.4 MEQ/L (3.5-5.1); SODIUM LEVEL 140 MEQ/L (136-145); TROPONIN I < 0.02 NG/ML (< 0.10)
[2019-03-22] MEDS ORDERED: ISOVUE-370 76% 100ML VIAL (Q9967) As Ordered ONE (22:54)
--- NOTE | 2019-03-22 23:26 | REPVR ---
EXAM: CT Angiography Chest With Contrast EXAM DATE/TIME: 03/22/2019 10:46 PM CLINICAL HISTORY: 49 years old, male; Chest pain; Type not specified; Additional info: Cp TECHNIQUE: Imaging protocol: Computed tomographic angiography of the chest with intravenous contrast. 3D rendering: MIP reconstructed images were created and reviewed. Radiation optimization: All CT scans at this facility use at least one of these dose optimization techniques: automated exposure control; mA and/or kV adjustment per patient size (includes targeted exams where dose is matched to clinical indication); or iterative reconstruction. Contrast material: ISO; Contrast volume: 75 ml; Contrast route: AC; COMPARISON: CT ANGIO CHEST 03/03/2019 6:11 PM FINDINGS: Pulmonary arteries: No focal pulmonary artery filling defect to suggest acute pulmonary embolus. Aorta: No thoracic aortic aneurysm or dissection. Lungs: Pulmonary vascular/interstitial pattern does not suggest active pulmonary edema. No suspicious lung mass or air space process. No central endobronchial lesion. Pleural space: No pleural effusion or pneumothorax. Heart: No cardiac enlargement or pericardial effusion. Lymph nodes: No enlarged mediastinal lymph nodes. Bones/joints: Bony structures show no acute fracture or destructive process. Upper abdomen: Limited visualization of upper abdomen shows no concerning finding. IMPRESSION: 1. No evidence of acute pulmonary embolus. 2. No other acute or concerning focal intrathoracic abnormality. Electronically signed by: Gage Montesinos On 03/22/2019 23:25:43 PM
--- NOTE | 2019-03-23 01:58 | REP ---
Clinical: Chest pain. Comparison: 03/03/2019. Findings: Mediastinum and cardiac silhouette are normal. Linear atelectasis at the left base noted. No focal consolidation, effusion, or pneumothorax. Skeletal structures intact. Impression: Linear plate-like atelectasis at the left base. Electronically Signed by Dirk Tan MD 03/23/2019 01:49 A
[2019-03-23 02:15] LABS: CK-MB VALUE MASS < 1.0 NG/ML (<3.6); CPK CREATINE PHOSPHOKINASE 88 U/L (39-308); MB/CK RELATIVE INDEX 1.14 (< OR =4); TROPONIN I < 0.02 NG/ML (< 0.10)
[2019-03-23 02:42] VITALS: BP 132/69
--- NOTE | 2019-03-23 05:40 | ECGEPIP ---
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
== END 2019-03-23 02:50 | disposition home or self-care (01) ==
LOC: M ED 21:46 → EEVIPCON 21:46 → M ED 03-23 02:50
DX: R07.89 Other chest pain (principal); R10.13 Epigastric pain; J44.9 Chronic obstructive pulmonary disease, unspecified; K21.9 Gastro-esophageal reflux disease without esophagitis; Z79.899 Other long term (current) drug therapy
CPT/HCPCS: 71045; 71275; 80048; 82550; 82553; 84439; 84443; 85025; 85610; 85730; 93005; 93041; 94760; 99285; Q9967

== ENCOUNTER 2019-10-01 19:06 | Emergency (ER) | payer MEDICAID, OTHER, SELFPAY ==
[~2019-10-01] VITALS: Ht 167.6 cm; Wt 86.4 kg
[2019-10-01] MEDS ORDERED: NS 1,000 ML IV SCH (19:18)
[2019-10-01] MEDS ORDERED: BUPR150T3 PO (19:22)
[2019-10-01 19:29] LABS: VENOUS BASE EXCESS -2.6 (-2.0-2.0); VENOUS HCO3 21.7 MEQ/L (23.0-27.0); VENOUS PARTIAL PRESSURE CO2 36.5 mmHg (38.0-50.0); VENOUS PARTIAL PRESSURE O2 87.5 mmHg (30.0-50.0); VENOUS PH 7.392 UNITS (7.330-7.430); VENOUS STANDARD HCO3 22.3 MEQ/L; VENOUS TOTAL CO2 22.8 MEQ/L (24.0-28.0)
[2019-10-01] MEDS ORDERED: ASPIRIN 81 MG CHEW TABLET PO ONE (19:30)
[2019-10-01 19:34] LABS: BASO # 0.1 10^3/uL (0.0-0.2); BASO % 0.8 % (0.0-1.0); EOS # 0.2 10^3/uL (0.0-0.5); EOS % 3.1 % (0.0-3.0); HEMATOCRIT 45.9 % (42.0-52.0); HEMOGLOBIN 15.6 g/dl (13.5-17.5); LYMPH % 26.9 % (24.0-44.0); MEAN CORPUSCULAR HEMOGLOBIN 30.1 pg (27.0-33.0); MEAN CORPUSCULAR VOLUME 88.4 fl (80.0-96.0); MONO # 0.5 10^3/uL (0.0-0.8); MONO % 6.8 % (0.0-5.0); NEUTROPHILS # 4.5 10^3/uL (1.5-8.5); PLATELET COUNT, AUTOMATED 181 10^3/uL (150-450); RED BLOOD COUNT 5.19 10^6/uL (4.30-6.10); WHITE BLOOD COUNT 7.3 10^3/uL (4.0-10.0)
[2019-10-01 19:45] LABS: INR 0.98; PROTHROMBIN TIME 12.7 SECONDS (11.8-14.0)
--- NOTE | 2019-10-01 20:00 | REP ---
Clinical: Chest pain . Comparison: 03/22/2019. Findings: The mediastinum and cardiac silhouette are stable and within normal limits for portable technique. The lung nesbitt are clear without acute consolidation, effusion, or pneumothorax. Skeletal structures are intact. Impression: No acute cardiopulmonary process appreciated. Electronically Signed by Dirk Tan MD 10/01/2019 07:51 P
[2019-10-01 20:07] LABS: BLOOD UREA NITROGEN 13 MG/DL (7-18); CALCIUM LEVEL 8.8 MG/DL (8.5-10.1); CARBON DIOXIDE LEVEL 25 MEQ/L (21-32); CHLORIDE LEVEL 107 MEQ/L (98-107); CK-MB VALUE MASS 1.5 NG/ML (<3.6); CPK CREATINE PHOSPHOKINASE 180 U/L (39-308); CREATININE FOR GFR 1.46 MG/DL (0.70-1.30); GLOMERULAR FILTRATION RATE 54.6 (>60); GLUCOSE, FASTING 99 MG/DL (70-100); MB/CK RELATIVE INDEX 0.83 (< OR =4); SODIUM LEVEL 140 MEQ/L (136-145); TROPONIN I < 0.02 NG/ML (< 0.10)
[2019-10-01 20:15] VITALS: BP 123/64
--- NOTE | 2019-10-02 16:09 | ECGEPIP ---
[facility] - ED Test Date: 2019-10-01 Pat Name: REUBEN SWAN Department: Room: - Gender: Male [employer] P[employer]: : 1970 Requested By: HALI DEAN Order Number: [id number] Reading MD: Steffany Mora Measurements Intervals [place] Rate: 80 P: 32 MT: 114 QRS: 11 QRSD: 97 T: 46 QT: 333 QTc: 386 Interpretive Statements SINUS RHYTHM WITH SHORT MT INTERVAL NSTTW abnormalities SIMILAR 03/22/19 Electronically Signed on 10-02-2019 16:09:08 EDT by Steffany Mora
== END 2019-10-01 20:54 | disposition home or self-care (01) ==
LOC: M ED 19:06
DX: R07.89 Other chest pain (principal); J45.909 Unspecified asthma, uncomplicated; F17.200 Nicotine dependence, unspecified, uncomplicated; Z79.899 Other long term (current) drug therapy

== ENCOUNTER 2020-04-18 16:12 | Emergency (ER) | payer MEDICAID, OTHER ==
[~2020-04-18] VITALS: Ht 167.6 cm; Wt 85.9 kg
[2020-04-18 16:12] VITALS: BP 143/82
[~2020-04-18 16:12] MED LIST changes: +BUPR150T3 PO
[2020-04-18] MEDS ORDERED: SPIR12.9 INH (16:45)
== END 2020-04-18 19:00 | disposition home or self-care (01) ==
LOC: M ED 16:12
DX: Z11.59 Encounter for screening for other viral diseases (principal); J44.9 Chronic obstructive pulmonary disease, unspecified; F17.200 Nicotine dependence, unspecified, uncomplicated; Z79.899 Other long term (current) drug therapy
CPT/HCPCS: 99283; U0003